=== PATIENT | female | born 1970 | race Caucasian/White ===

== ENCOUNTER 2017-02-24 10:06 | Emergency (ER) | payer MEDICAID ==
[~2017-02-24] VITALS: Ht 157.5 cm; Wt 87.5 kg
[2017-02-24 10:10] VITALS: Ht 157.5 cm; Wt 87.5 kg
[2017-02-24] MEDS ORDERED: KETOROLAC 60 MG INJ IM STA (10:56)
[2017-02-24] MEDS ORDERED: TRAM50TA2 PO (10:58)
--- NOTE | 2017-02-24 11:26 | ERD ---
ER Documentation Chief Complaint Date/Time DATE: 02/24/17 TIME: 11:23 Chief Complaint Pt with Leg pain X 8 days, fell in October HPI 46-year-old female planing of left leg pain 8 days. Patient states she has pain with walking. Is taking naproxen with no alleviation. Denies any swelling. Denies numbness or tingling to distal leg. Fell in October but has not had recent injury. Patient does not feel that this pain is associated with her fall. Patient's pain is localized over the tibia and fibula. No acute injuries. No knee pain. No ankle pain. No fevers. No redness. Denies shortness of breath ROS All systems reviewed and are negative except as per history of present illness. Medications Home Meds Active Scripts Tramadol HCl (Tramadol HCl) 50 Mg Tablet, 50 MG PO Q4 Y for PAIN, #10 TAB Prov:PRESTON BOLDEN PA-C 02/24/17 Physical Exam Vitals Vital Signs Date Time Temp Pulse Resp B/P Pulse Ox O2 Delivery O2 Flow Rate FiO2 02/24/17 10:10 98.3 78 18 141/78 97 Physical Exam GENERAL: The patient is well-appearing, well-nourished, in no acute distress CHEST: Clear to auscultation bilaterally. There are no rales, wheezes or rhonchi. HEART: Regular rate and rhythm. No murmurs, clicks, rubs or gallops. No S3 or S4. EXTREMITIES: Equal pulses bilaterally. There is no peripheral clubbing, cyanosis or edema. No focal swelling or erythema. Full range of motion. Grossly neurovascularly intact. Mild tenderness palpation over the left lateral calf. NEUROLOGIC: Alert and oriented. Cranial nerves II through XII intact. Motor strength in all 4 extremities with 5 out of 5 strength. Sensation grossly intact. Normal speech and gait. Babinski negative. DTR 2+ throughout. SKIN: There is no apparent rash or petechiae. The skin is warm and dry. No ecchymosis. Results 24 hrs Current Medications Medications (Trade) Dose Ordered Sig/Charlene Route PRN Reason Start Time Stop Time Status Last Admin Dose Admin Ketorolac Tromethamine (Toradol) 60 mg ONCE STAT IM 02/24/17 10:56 02/24/17 10:57 DC 02/24/17 11:06 Procedures/MDM MDM: I have low suspicion for DVT or skin infection. I have low suspicion for acute fracture dislocation. I have low suspicion for shingles. Pain is likely secondary to musculoskeletal strain and will be given medication for symptoms. I recommend patient to rest extremity and apply ice as needed. I do not feel that there was indication for imaging as patient's exam is non-concerning and she has no history of acute injury. Low suspicion for neurodeficit as patient' s pulses are intact to the left distal extremity and patient is neurovascularly intact. Patient does not have findings of decreased range of motion. Patient' s exam is non-concerning. Patient is discharged with pain medication and recommended to follow-up with primary care within 1-2 days for close evaluation. Patient is told if symptoms change or worsen to return the ER. Departure Diagnosis: Primary Impression: Pain of left leg Condition: Stable Patient Instructions: Possible Causes of Low Back or Leg Pain Referrals: [facility] YOU HAVE RECEIVED A MEDICAL SCREENING EXAM AND THE RESULTS INDICATE THAT YOU DO NOT HAVE A CONDITION THAT REQUIRES URGENT TREATMENT IN THE EMERGENCY DEPARTMENT. FURTHER EVALUATION AND TREATMENT OF YOUR CONDITION CAN WAIT UNTIL YOU ARE SEEN IN YOUR DOCTORS OFFICE WITHIN THE NEXT 1-2 DAYS. IT IS YOUR RESPONSIBILITY TO MAKE AN APPOINTMENT FOR [facility]. IF YOU HAVE A PRIMARY DOCTOR --you should call your primary doctor and schedule an appointment IF YOU DO NOT HAVE A PRIMARY DOCTOR YOU CAN CALL OUR PHYSICIAN REFERRAL HOTLINE AT IF YOU CAN NOT AFFORD TO SEE A PHYSICIAN YOU CAN CHOSE FROM THE FOLLOWING [facility] [id number] [facility]. [facility] [address] [facility] [address] [facility] [facility] [address] [id number] [facility] [facility]. [address] Additional Instructions: FOLLOW UP WITH YOUR PRIMARY CARE PHYSICIAN TOMORROW.Return to this facility if you are not improving as expected. PRESTON BOLDEN PA-C Feb 24, 2017 11:26
== END 2017-02-24 11:20 | disposition home or self-care (01) ==
LOC: FTE 10:06
DX: M79.605 Pain in left leg (principal)
CPT/HCPCS: 96372; J1885; Z7502